=== PATIENT | male | born 1970 | race Hispanic/Latino ===

== ENCOUNTER 2019-01-20 10:26 | Emergency (ER) | payer OTHER, SELFPAY ==
[2019-01-20] MEDS ORDERED: DOXYCYCLINE HYCLATE 100 MG TABLET PO ONE (10:46)
== END 2019-01-20 10:56 | disposition home or self-care (01) ==
LOC: EDH 10:26
DX: L02.11 Cutaneous abscess of neck (principal); L03.221 Cellulitis of neck; E11.9 Type 2 diabetes mellitus without complications; Z79.899 Other long term (current) drug therapy

== ENCOUNTER 2019-09-18 11:46 | Emergency (ER) | payer OTHER, SELFPAY ==
[2019-09-18] MEDS ORDERED: ACETAMINOPHEN EXTRA STRENGTH 500 MG TABLET ONE (12:24)
[2019-09-18] MEDS ORDERED: ONDANSETRON ODT 4 MG TAB ONE (12:25)
== END 2019-09-18 14:32 | disposition home or self-care (01) ==
LOC: EDH 11:46
DX: U07.1 COVID-19 (principal); R06.02 Shortness of breath; R50.9 Fever, unspecified; R11.2 Nausea with vomiting, unspecified; R19.7 Diarrhea, unspecified; M54.5 Low back pain
CPT/HCPCS: 36415; 71045; 80053; 81001; 85025; 87804 ×2; 99284; U0003

== ENCOUNTER 2023-04-23 12:57 | Emergency (ER) | payer OTHER, SELFPAY ==
[~2023-04-23] VITALS: Ht 182.9 cm; Wt 131.5 kg
[2023-04-23] MEDS ORDERED: CLIN-141 PO (13:26)
[2023-04-23] MEDS ORDERED: MUPI22O TP (13:26)
[2023-04-23] MEDS ORDERED: CLINDAMYCIN 150 MG CAP PO ONE (13:30)
[2023-04-23 14:08] VITALS: BP 157/85; PULSE 94; RESP 18; O2SAT 95
== END 2023-04-23 14:30 | disposition home or self-care (01) ==
LOC: EDH 12:57
DX: L03.115 Cellulitis of right lower limb (principal); S90.811A Abrasion, right foot, initial encounter; E11.9 Type 2 diabetes mellitus without complications; Z79.899 Other long term (current) drug therapy; X58.XXXA Exposure to other specified factors, initial encounter; Y93.89 Activity, other specified; Y92.89 Other specified places as the place of occurrence of the external cause; Y99.8 Other external cause status

== ENCOUNTER 2024-01-25 15:44 | Emergency (ER) | payer SELFPAY ==
[~2024-01-25] VITALS: Ht 182.9 cm; Wt 131.1 kg
[~2024-01-25 15:44] MED LIST: CLIN-141 PO; MUPI22O TP
[2024-01-25 16:26] VITALS: BP_DIAS 86
[2024-01-25] MEDS ORDERED: KETO10TA2 PO (17:28)
[2024-01-25] MEDS ORDERED: ACYC-138 PO (17:28)
--- NOTE | 2024-01-25 17:29 | ERN ---
General Chief Complaint: Skin Rash/Abscess Stated Complaint: RIGHT FOREARM RASH X3 DAYS Time Seen by MD: 15:48 Time Seen by Midlevel: 15:48 Source: patient History of Present Illness Initial Comments Patient is a 53-year-old male with a past medical history of herpes zoster presenting to the emergency department for evaluation of a rash that has been ongoing for the last three days. The rash is located to the right forearm and left lower leg. The rash is not itchy in nature and does not hurt. He does report a previous episode many years ago and was diagnosed with shingles at that time. He specifically denies any ear pain, vision changes, shortness for breath, fever, chest pain, or any other symptoms at this time. Allergies: Coded Allergies: No Known Drug Allergies (Verified Allergy, 02/12/12) Home Meds Active Scripts Ketorolac Tromethamine (Ketorolac Tromethamine) 10 Mg Tablet, 10 MG PO BID for 5 Days, #10 TAB Prov:MARAL MART 01/25/24 Acyclovir (Acyclovir) 800 Mg Tablet, 1 TAB PO 5XDAY for 7 Days, #35 TAB 0 Refills Prov:MARAL MART 01/25/24 Mupirocin (Bactroban 2% Oint) 2 % Oint, 1 APPL TP TID for 7 Days, #30 APPL Prov:PERLA BARNES NP 04/23/23 Clindamycin HCl (Clindamycin HCl) 300 Mg Capsule, 1 CAP PO QID for 10 Days, #40 CAP 0 Refills Prov:PERLA BARNES TITLE INSPECTOR 04/23/23 Past Medical History Past Medical History: Diabetes-Type II Past Surgical History: None ROS Dictation CONSTITUTIONAL: Negative except for HPI HEAD/FACE: Negative except for HPI EENT: Negative except for HPI RESPIRATORY: Negative except for HPI GASTROINTESTINAL/ABDOMINAL: Negative except for HPI GENITOURINARY: Negative except for HPI MUSCULOSKELETAL: Negative except for HPI INTEGUMENTARY: Negative except for HPI NEUROLOGICAL/PSYCH: Negative except for HPI HEMATOLOGIC/LYMPHATIC: Negative except for HPI All Systems Negative, Except as noted above. 13 point review of systems assessed and all negative except for above. Physical Exam Physical Exam Dictation Vital Signs reviewed General Appearance: Alert, oriented x 3, no acute distress, well developed, nourished. Head and Face: non-traumatic. Eyes: PERRL, pink conjunctivas, eyelid no trauma, anterior chamber with arcus senilis. Ears: Pinnas intact and no signs of trauma or erythema ear canals clear and no discharge TM no erythema Nose: No discharge, no bleeding. Oropharynx: Mouth normal, tongue pink, pharynx clear,no erythema, tonsils no exudates, no abscesses noted, mucous membrane moist Neck: Supple, non-tender, no thyromegaly, no masses, no JVD, no bruits Breast:Deferred Chest:No tenderness, no crepitus, no paradoxical movement, no retractions Lungs:Clear, well-ventilated, symmetric, no rales, no wheezing, no rhonchi, no stridor, good breath sounds bilaterally Heart: Regular rate, regular rhythm, no murmur, no gallops Vascular: no peripheral edema, Abdomen: Soft, positive bowel sounds, nondistended, no guarding, nontender, no rebound, no masses no hepatomegaly, no splenomegaly, no Wharton's sign, no hernias. Rectal: Deferred Genital: Deferred Neurological: Normal speech, motor function intact, sensory function intact Musculoskeletal: Neck nontender, full range of motion, back nontender, full range of motion, Extremities: nontender, full range of motion Skin: There are grouped vesicular lesions to the right anterior forearm, there is no surrounding erythema or induration, no signs of an abscess, the rash is distributed in a dermatomal pattern Lymphatic: Deferred MDM MDM: Patient is a 53-year-old male with a past medical history of herpes zoster presenting to the emergency department for evaluation of a rash that has been ongoing for the last three days. The rash is located to the right forearm and left lower leg. The rash is not itchy in nature and does not hurt. He does report a previous episode many years ago and was diagnosed with shingles at that time. He specifically denies any ear pain, vision changes, shortness for breath, fever, chest pain, or any other symptoms at this time. On physical examination there are grouped vesicular lesions to the right anterior forearm, there is no surrounding erythema or induration, no signs of an abscess, the rash is distributed in a dermatomal pattern. His physical examination is consistent with shingles. Patient will be started on acyclovir and will be sent home supportive management. Patient agreeable with this plan and all questions have been answered. No need for labs or advanced imaging at this time. There is no rash to the face or ears. No concern for herpes ophthalmicus. There is also no concern for [place] Parra syndrome. Differential diagnosis: Shingles, allergic reaction, contact dermatitis There are no social concerns with this patient. Prescription drug management Prescriptions will include: Acyclovir Medical management and examination interpretation discussions were had by me with other qualified healthcare professionals as indicated for the patient's care. ED Course Vital Signs Date Time Temp Pulse Resp B/P (MAP) Pulse Ox O2 Delivery O2 Flow Rate FiO2 01/25/24 17:41 98.1 78 16 132/ 100 Room Air* 0 21 01/25/24 16:26 97.9 80 20 159/86 99 Room Air DX & DISP Disposition: Discharge Departure Impression: Primary Impression: Shingles rash Condition: Stable Scripts Ketorolac Tromethamine (Ketorolac Tromethamine) 10 Mg Tablet 10 MG PO BID for 5 Days, #10 TAB Prov: MARAL MART 01/25/24 Acyclovir (Acyclovir) 800 Mg Tablet 1 TAB PO 5XDAY for 7 Days, #35 TAB 0 Refills Prov: MARAL MART 01/25/24 Additional Instructions: Your rash is consistent with shingles. I have given you a prescription for acyclovir for the next seven days. If you develop any pain you may take ketorolac. Follow up with your doctor in 2-3 days for repeat evaluation. Referrals: SELF,REFERRAL (PCP) Time of Disposition: 17:26 I have reviewed the case, and I agree with, Diagnosis and Plan I performed the substantive portion of the visit. I have reviewed and personally made and approve the management plan that is documented in the note by myself or the LAURIE. I acknowledge for responsibility for the patient's management plan. MARAL MART Jan 25, 2024 17:29 JANICE PÉREZ DO Jan 27, 2024 08:48
[2024-01-25 17:41] VITALS: BP_SYST 132; PULSE 78; RESP 16; TEMP 98; O2SAT 100
== END 2024-01-25 17:47 | disposition home or self-care (01) ==
LOC: EDH 15:44
DX: B02.9 Zoster without complications (principal); E11.9 Type 2 diabetes mellitus without complications; Z79.899 Other long term (current) drug therapy
CPT/HCPCS: 99283

== ENCOUNTER 2025-03-01 15:04 | Emergency (ER) | payer SELFPAY ==
[~2025-03-01] VITALS: Ht 182.9 cm; Wt 131.5 kg
--- NOTE | 2025-03-01 15:11 | ERN ---
ED Note History of Present Illness Stated Complaint: LOW BACK Chief Complaint: Low Back Pain/Injury Time Seen by MD: 15:07 Dictation: PATIENT IS A 55-YEAR-OLD MALE COMING IN TODAY WITH DIFFUSE LUMBOSACRAL PAIN HE HAS HAD FOR THE LAST TWO WEEKS ON-CALL. HE DENIES ANY PRIOR HISTORY OF SURGERIES OR INJURIES NO CHANGE IN URINATION NO NAUSEA VOMITING NO REFERRED PAIN. HE STATES HIS PRIMARY CARE DOCTORS IN [place] HOWEVER HE HAS NOT BEEN IN HER TO FOLLOW UP AND SEE HIM. NOT TAKE ANYTHING TODAY PRIOR TO ARRIVAL FOR PAIN DOES STATE HE HAD A KIDNEY [id number] YEARS AGO. Allergies: Coded Allergies: No Known Drug Allergies (Verified Allergy, 02/12/12) Home Meds Active Scripts Ketorolac Tromethamine (Ketorolac Tromethamine) 10 Mg Tablet, 10 MG PO BID for 5 Days, #10 TAB Prov:MARAL MART PAC 01/25/24 Acyclovir (Acyclovir) 800 Mg Tablet, 1 TAB PO 5XDAY for 7 Days, #35 TAB 0 Refills Prov:MARAL MART PAC 01/25/24 Mupirocin (Bactroban 2% Oint) 2 % Oint, 1 APPL TP TID for 7 Days, #30 APPL Prov:PERLA BARNES SALES AND EVENTS COORDINATOR 04/23/23 Clindamycin HCl (Clindamycin HCl) 300 Mg Capsule, 1 CAP PO QID for 10 Days, #40 CAP 0 Refills Prov:PERLA BARNES SALES AND EVENTS COORDINATOR 04/23/23 Past Medical History Past Medical History: Diabetes-Type II Surgical History: None RN Note Reviewed/Agreed w/PFSH: Yes Review of System Dictation CONSTITUTIONAL: NEGATIVE EXCEPT FOR HPI HEAD/FACE: NEGATIVE EXCEPT FOR HPI EENT: NEGATIVE EXCEPT FOR HPI RESPIRATORY: NEGATIVE EXCEPT FOR HPI GASTROINTESTINAL/ABDOMINAL: NEGATIVE EXCEPT FOR HPI GENITOURINARY: NEGATIVE EXCEPT FOR HPI MUSCULOSKELETAL: NEGATIVE EXCEPT FOR HPI DIFFUSE LUMBOSACRAL PAIN NO MIDLINE SPINE PAIN INTEGUMENTARY: NEGATIVE EXCEPT FOR HPI NEUROLOGICAL/PSYCH: NEGATIVE EXCEPT FOR HPI HEMATOLOGIC/LYMPHATIC: NEGATIVE EXCEPT FOR HPI ALL SYSTEMS NEGATIVE, EXCEPT NOTED ABOVE. 13 POINT REVIEW OF SYSTEMS ASSESSED AND ALL NEGATIVE EXCEPT FOR ABOVE. Initial Vital Sign VS Vital Signs Date Time Temp Pulse Resp B/P (MAP) Pulse Ox O2 Delivery O2 Flow Rate FiO2 03/01/25 15:05 97.9 88 16 151/79 99 Room Air 03/01/25 15:28 0 21 Physical Exam Dictation VITAL SIGNS REVIEWED GENERAL APPEARANCE: ALERT, ORIENTED X 3, MILD ACUTE DISTRESS, WELL DEVELOPED, NOURISHED. OBESE HEAD AND FACE: NON-TRAUMATIC. EYES: PERRL, PINK CONJUNCTIVAS, EYELID NO TRAUMA, ANTERIOR CHAMBER WITH ARCUS SENILIS. EARS: PINNAS INTACT AND NO SIGNS OF TRAUMA OR ERYTHEMA EAR CANALS CLEAR AND NO DISCHARGE TM NO ERYTHEMA NOSE: NO DISCHARGE, NO BLEEDING. OROPHARYNX: MOUTH NORMAL, TONGUE PINK, PHARYNX CLEAR,NO ERYTHEMA, TONSILS NO EXUDATES, NO ABSCESSES NOTED, MUCOUS MEMBRANE MOIST NECK: SUPPLE, NON-TENDER, NO THYROMEGALY, NO MASSES, NO JVD, NO BRUITS BREAST:DEFERRED CHEST:NO TENDERNESS, NO CREPITUS, NO PARADOXICAL MOVEMENT, NO RETRACTIONS LUNGS:CLEAR, WELL-VENTILATED, SYMMETRIC, NO RALES, NO WHEEZING, NO RHONCHI, NO STRIDOR, GOOD BREATH SOUNDS BILATERALLY HEART: REGULAR RATE, REGULAR RHYTHM, NO MURMUR, NO GALLOPS VASCULAR: NO PERIPHERAL EDEMA, ABDOMEN: SOFT, POSITIVE BOWEL SOUNDS, NONDISTENDED, NO GUARDING, NONTENDER, NO REBOUND, NO MASSES NO HEPATOMEGALY, NO SPLENOMEGALY, NO MILLER'S SIGN, NO HERNIAS. NEGATIVE CVAT BILATERALLY RECTAL: DEFERRED GENITAL: DEFERRED NEUROLOGICAL: NORMAL SPEECH, MOTOR FUNCTION INTACT, SENSORY FUNCTION INTACT MUSCULOSKELETAL: NECK NONTENDER, FULL RANGE OF MOTION, DIFFUSE LUMBOSACRAL PAIN TENDERNESS. NO STEP-OFFS NEGATIVE STRAIGHT LEG RAISE BILATERALLY 10 FULL RANGE OF MOTION EXTREMITIES: NONTENDER, FULL RANGE OF MOTION SKIN: COLOR PINK, DRY, NO TURGOR, NO RASH, NO LACERATIONS, NO ABRASIONS, NO CONTUSIONS. LYMPHATIC: DEFERRED Results (Laboratory/Radiology) Laboratory/Radiology Laboratory Tests Test 03/01/25 15:09 Urine Color YELLOW (YELLOW) Urine Appearance CLOUDY (CLEAR) H Urine pH 6.0 (5.0-8.0) Urine Specific [place] 1.023 (1.001-1.031) Urine Protein 50 mg/dL (NEGATIVE) H Urine Glucose (UA) >=1000 mg/dL (NEGATIVE) H Urine Ketones NEGATIVE mg/dL (NEGATIVE) Urine Occult Blood SMALL (NEGATIVE) H Urine Nitrate 2+ (NEGATIVE) H Urine Bilirubin NEGATIVE mg/dL (NEGATIVE) Urine Urobilinogen 0.2 mg/dL (0.2-1.0) Urine Leukocyte Esterase 500 Fidel/uL (NEGATIVE) H Urine RBC 11-25 /HPF (0-1) H Urine WBC 51-100 /HPF (0-1) H Urine WBC Clumps (Auto) FEW /HPF (0-1) Urine Squamous Epithelial Cells FEW /HPF (0-2) Urine Other Crystals (Auto) 2 /HPF (None Seen) Urine Bacteria RARE /HPF (None Seen) Labs Reviewed?: Yes ED Course ED Course Orders Procedure Category Date Status Time Urinalysis Profile LAB 03/01/25 Complete 15:07 Ibuprofen 800 Mg Tab PHA 03/01/25 In Process (Motrin) 15:30 Cyclobenzaprine Hcl PHA 03/01/25 In Process (Cyclobenzaprine Hcl 15:30 Culture Urine FRANCOISE 03/01/25 In Process 15:55 Current Medications Medications (Trade) Dose Ordered Sig/Braulio Route PRN Reason Start Time Stop Time Status Last Admin Dose Admin Cyclobenzaprine HCl (Cyclobenzaprine HCl) 10 mg ONCE PO 03/01/25 15:30 03/01/25 18:00 Ibuprofen (moTRIN) 800 mg ONCE PO 03/01/25 15:30 03/01/25 18:30 Vital Signs Date Time Temp Pulse Resp B/P (MAP) Pulse Ox O2 Delivery O2 Flow Rate FiO2 03/01/25 15:28 97.9 88 16 151/79 99 Room Air* 0 21 03/01/25 15:05 97.9 88 16 151/79 99 Room Air 1607/PAIN IS MARKEDLY REDUCED AFTER TREATMENT. PATIENT HAS A UTI WITH HEMATURIA WE WILL BE DISCHARGED HOME WITH A AUGMENTIN AND PYRIDIUM. AND MOTRIN TOLD SEE HIS DOCTOR IN [place] TWO TWO DAYS Medical Decision Making MDM MEDICAL DISCHARGE MAKING BASED ON EMPIRIC TREATMENT FOR LOW BACK PAIN PATIENT DOES HAVE A ACUTE CYSTITIS WITH HEMATURIA WE WILL BE TREATED WITH THE AUGMENTIN AND PYRIDIUM IBUPROFEN TOLD SEE HIS PRIMARY CARE DOCTOR IN [place] MONDAY DX & DISP Disposition: Discharge Departure Impression: Primary Impression: Acute cystitis with hematuria Additional Impression: Low back pain Condition: Stable Scripts Amoxicillin/Potassium Clav (Amox Tr-K Clv 875-125 mg Tab) 875 Mg-125 Mg Tablet 1 EACH PO BID for 7 Days, #14 TAB 0 Refills Prov: PERLA BARNES SALES AND EVENTS COORDINATOR 03/01/25 Ibuprofen (Ibuprofen) 800 Mg Tablet 800 MG PO Q6H PRN for PAIN, #30 TAB Prov: PERLA BARNES 03/01/25 Additional Instructions: FOLLOW-UP WITH PRIMARY CARE PROVIDER IN 1 TO 2 DAYS. TAKE MEDICATIONS DIRECTED HERE IN THE EMERGENCY ROOM. OKAY TO CONTINUE HOME MEDICATIONS UNLESS OTHERWISE DISCUSSED DURING YOUR VISIT IN THE EMERGENCY ROOM TODAY. RETURN TO YOUR NEAREST EMERGENCY ROOM IF SYMPTOMS WORSEN OR IF THERE IS NO IMPROVEMENT. CALL 911 IF YOU NEED IMMEDIATE ASSISTANCE. TAKE TYLENOL OR MOTRIN [id number] NEEDED AND IF NO CONTRAINDICATIONS ARE PRESENT. INCREASE ORAL HYDRATION. A WOUND CULTURE OR URINE CULTURE WAS ORDERED HERE IN THE EMERGENCY ROOM DEPARTMENT PLEASE FOLLOW-UP WITH PRIMARY CARE PROVIDER AND ADVISE THEM TO GET REPEAT PORTS FROM OUR FACILITY. IF YOU HAD ANY JOHNNY WRAP/SPLINTS THAT WERE APPLIED HERE, PLEASE DO NOT REMOVE THEM UNTIL YOU SEE YOUR PRIMARY CARE OR SPECIALTY. TAKE ANTIBIOTICS DIRECTED UNTIL GONE. SEE YOUR DOCTOR IN [place] ON MONDAY WITHOUT FAIL FOR FOLLOW UP AND MANAGEMENT. TAKE IBUPROFEN NEEDED FOR PAIN INCREASE YOUR WATER INTAKE. Referrals: SELF,REFERRAL (PCP) Time of Disposition: 16:08 I have reviewed the case, and I agree with, Diagnosis and Plan PERLA BARNES Mar 01, 2025 15:11
[2025-03-01 15:50] LABS: APPEARANCE,URINE CLOUDY (CLEAR); GLUCOSE, URINE (UA) >=1000 mg/dL (NEGATIVE); LEUKOCYTE ESTERASE ,URINE 500 Leu/uL (NEGATIVE); NITRATE,URINE 2+ (NEGATIVE); OCCULT BLOOD,URINE SMALL (NEGATIVE)
[2025-03-01 15:51] LABS: ADD UA MICROSCOPIC YES
[2025-03-01 15:57] LABS: SQUAMOUS EPITHELIAL CELL,UR FEW /HPF (0-2); UNCLASSIFIED CRYSTAL 2 /HPF (None Seen); WBC CLUMP FEW /HPF (0-1)
[2025-03-01] MEDS: CYCLOBENZAPRINE HCL 10 MG TABLET PO SCH (16:06)
[2025-03-01 16:34] VITALS: BP 138/72; PULSE 82; RESP 16; TEMP 97.9; O2SAT 99
== END 2025-03-01 16:35 | disposition home or self-care (01) ==
LOC: EDH 15:04
DX: N30.01 Acute cystitis with hematuria (principal); M54.50 Low back pain, unspecified; E11.9 Type 2 diabetes mellitus without complications; Z79.899 Other long term (current) drug therapy
CPT/HCPCS: 81001; 87086; 99283